=== PATIENT | female | born 1955 | race Asian ===

== ENCOUNTER 2017-10-25 10:40 | Day surgery (SDC) | payer OTHER ==
[2017-10-25] MEDS ORDERED: MOXIFLOXACIN 0.5% 3 ML OPH (11:45)
[2017-10-25] MEDS ORDERED: CYCLOPENTOLATE 2% 2 ML OPH (11:45)
[2017-10-25] MEDS ORDERED: NEPAFENAC 0.1% 3 ML OPH (11:46)
[2017-10-25] MEDS ORDERED: PHENYLephrine 10% 5 ML OPH (11:46)
[2017-10-25] MEDS: MOXIFLOXACIN 0.5% 3 ML OPH OPER (11:48)
[2017-10-25] MEDS: CYCLOPENTOLATE 2% 2 ML OPH OPER (11:49)
[2017-10-25] MEDS: PHENYLephrine 10% 5 ML OPH OPER (11:49)
[2017-10-25] MEDS: NEPAFENAC 0.1% 3 ML OPH OPER (11:50)
[2017-10-25] MEDS ORDERED: EPINEPHrine 1 MG INJ ×2 (13:58→15:14)
[2017-10-25] MEDS ORDERED: TIMOLOL 0.5% 5 ML OPH ×2 (13:58→15:14)
[2017-10-25] MEDS ORDERED: LABETALOL HCL 20MG INJ IV (14:30)
[2017-10-25] MEDS ORDERED: METOCLOPRAMIDE 10 MG INJ IV (14:30)
[2017-10-25] MEDS ORDERED: EPHEDrine SULFATE 50 MG/5 ML SYG IV (14:30)
[2017-10-25] MEDS ORDERED: DIPHENHYDRAMINE 50 MG INJ IV (14:30)
[2017-10-25] MEDS ORDERED: FENTAnyl 50 MCG/ML VIAL IV ×3 (14:30)
[2017-10-25] MEDS ORDERED: OXYCODONE/ACETAMINOPHEN (5/325) TAB PO (14:30)
[2017-10-25] MEDS ORDERED: MIDAZOLAM 1 MG/ML 2 ML INJ IV (14:30)
[2017-10-25] MEDS ORDERED: hydrALAzine 20 MG INJ IV (14:30)
[2017-10-25] MEDS: TIMOLOL 0.5% 5 ML OPH LEFT EYE ×2 (15:54)
[2017-10-25] MEDS ORDERED: PROPOFOL 20 ML (16:12)
[2017-10-25] MEDS ORDERED: LIDOCAINE 2% (SDV) 5 ML INJ (16:12)
[2017-10-25] MEDS ORDERED: FENTAnyl 50 MCG/ML VIAL (16:31)
[2017-10-25] MEDS: MEPERIDINE 25 MG INJ IV (16:59)
[2017-10-25] MEDS: ONDANSETRON 4 MG INJ IV (17:00)
[2017-10-25] MEDS: OXYCODONE/ACETAMINOPHEN (5/325) TAB PO (17:00)
== END 2017-10-25 18:45 | disposition home or self-care (01) ==
LOC: SDS 10:40
DX: H25.12 Age-related nuclear cataract, left eye (principal); J44.9 Chronic obstructive pulmonary disease, unspecified
CPT/HCPCS: 66984